=== PATIENT | male | born 1990 | race Caucasian/White ===

== ENCOUNTER 2021-01-21 00:37 | Emergency (ER) | payer MEDICAID ==
[~2021-01-21] VITALS: Ht 182.9 cm; Wt 88.5 kg
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
--- NOTE | 2021-01-21 04:29 | NUR ---
FOLLOWED UP WITH [facility] REGARDING RADIOLOGY
[2021-01-21] MEDS ORDERED: ONDANSETRON 4 MG TAB.RAPDIS ONE (04:57)
[2021-01-21] MEDS ORDERED: HYDROCODONE/APAP 10/325MG TABLET ONE (04:57)
[2021-01-21] MEDS ORDERED: DICL50TA7 PO (04:57)
[2021-01-21] MEDS ORDERED: ONDANSETRON 4 MG TAB.RAPDIS SL ONE (05:00)
[2021-01-21] MEDS ORDERED: HYDROCODONE/APAP 10/325MG TABLET PO ONE (05:00)
--- NOTE | 2021-01-21 05:00 | NUR ---
Patient discharged to home in stable condition. Written and verbal after care instructions given. Patient verbalizes understanding of instruction.
[2021-01-21 05:08] VITALS: BP 127/76
== END 2021-01-21 05:08 | disposition home or self-care (01) ==
LOC: ER 00:44
DX: R51.9 Headache, unspecified (principal); M54.2 Cervicalgia; M54.6 Pain in thoracic spine; M54.50 Low back pain, unspecified; Z60.2 Problems related to living alone; V43.52XA Car driver injured in collision with other type car in traffic accident, initial encounter; Y93.89 Activity, other specified; Y92.413 State road as the place of occurrence of the external cause; Y99.8 Other external cause status
CPT/HCPCS: 70450; 72125; 72128; 72131; 99285; Q0162